=== PATIENT | male | born 1955 | race Caucasian/White ===

== ENCOUNTER 2024-05-20 16:36 | Inpatient (IN) | payer MEDICARE ==
[~2024-05-20] VITALS: Ht 182.9 cm; Wt 75.3 kg
[2024-05-21] VITALS (13 sets, daily range): BP systolic 110–148; BP diastolic 60–104; TEMP 97.7–100; O2SAT 95–99
[2024-05-21] MEDS ORDERED: MAG HYDROX/AL HYDROX/SIMETH 30 ML UDC PO PRN (02:30)
[2024-05-21] MEDS ORDERED: MORPHINE SULFATE INJ 4 MG/ML DISP.SYRIN IV PRN (02:30)
[2024-05-21] MEDS ORDERED: ONDANSETRON HCL/PF 4 MG/2 ML VIAL IVP PRN (02:30)
[2024-05-21] MEDS ORDERED: MAGNESIUM HYDROXIDE 30 ML UDC PO PRN (02:30)
[2024-05-21] MEDS ORDERED: HEPARIN INFUSION/D5W 500 ML IV PRN ×2 (02:30→03:00)
[2024-05-21 03:09] LABS: CALCIUM, SERUM 8.8 mg/dL (8.5-10.1); MAGNESIUM 2.2 mg/dL (1.8-2.4); PHOSPHORUS 6.1 mg/dL (2.5-4.9); POTASSIUM 4.3 mmol/L (3.5-5.1)
[2024-05-21 03:19] LABS: THYROID STIMULATING HORMONE 3.82 uIU/mL (0.358-3.74)
[2024-05-21 03:38] LABS: CREATININE 8.3 mg/dL (0.6-1.3)
[2024-05-21] MEDS: ACETAMINOPHEN 325 MG TABLET PO PRN (04:14)
[2024-05-21] MEDS: AMIODARONE 150 MG in IV D5W 100 ML IV ONE (04:23)
[2024-05-21] MEDS: AMIODARONE 150 MG/3 ML VIAL IV ONE ×2 (04:29→04:47)
[2024-05-21] MEDS: AMIODARONE 450 MG in IV D5W 241 ML IV PRN (04:34)
[2024-05-21] MEDS: HEPARIN INFUSION/D5W 500 ML IV ONE (05:00)
[2024-05-21] MEDS: HEPARIN INFUSION/D5W 500 ML IV PRN (05:03)
[2024-05-21] MEDS: METOPROLOL TARTRATE 50 MG TABLET PO SCH (07:00)
[2024-05-21 07:30] LABS: BASOPHILS % (AUTO) 0.3 % (0.0-2.0); EOSINOPHILS # (AUTO) 0.1 K/uL (0.0-0.7); EOSINOPHILS % (AUTO) 0.6 % (0.0-6.0); HEMATOCRIT 28 % (39-51); HEMOGLOBIN 9.7 g/dL (13.5-17.5); LYMPHOCYTES # (AUTO) 0.5 K/uL (0.8-4.8); LYMPHOCYTES % (AUTO) 6.6 % (20.0-44.0); MEAN CORPUSCULAR HEMOGLOBIN 33 PG (26.0-33.0); MEAN CORPUSCULAR HGB CONC 34 g/dl (31.0-36.0); MEAN CORPUSCULAR VOLUME 96 fL (80-96); MONOCYTES % (AUTO) 11.5 % (2.0-12.0); NEUTROPHILS # (AUTO) 6.8 K/uL (1.8-8.9); PLATELET COUNT (AUTO) 125 K/uL (150-450); RED BLOOD CELL COUNT(AUTO) 2.95 MIL/uL (4.5-6.0); RED CELL DISTRIBUTION WIDTH 15.5 % (11.5-15.0); WHITE BLOOD COUNT (AUTO) 8.4 K/uL (4.3-11.0)
[2024-05-21 07:35] LABS: ALBUMIN 2.7 g/dL (3.4-5.0); BILIRUBIN,TOTAL 0.6 mg/dL (0.2-1.0); CALCIUM, SERUM 8.5 mg/dL (8.5-10.1); MAGNESIUM 2.3 mg/dL (1.8-2.4); PHOSPHORUS 5.9 mg/dL (2.5-4.9); POTASSIUM 4.5 mmol/L (3.5-5.1); TOTAL PROTEIN, SERUM 6.4 g/dL (6.4-8.2)
[2024-05-21 08:42] LABS: CREATININE 8.8 mg/dL (0.6-1.3)
[2024-05-21] MEDS ORDERED: CARV25TA2 PO (08:56)
[2024-05-21] MEDS ORDERED: FINA5TAB11 PO (08:56)
[2024-05-21] MEDS ORDERED: HYDR100T27 PO (08:56)
[2024-05-21] MEDS ORDERED: LEVO25TA9 PO (08:56)
[2024-05-21] MEDS ORDERED: DOXA4TAB19 PO (08:56)
[2024-05-21] MEDS ORDERED: SACU1TAB7 PO (08:56)
[2024-05-21] MEDS ORDERED: PANTOPRAZOLE 40 MG VIAL IV SCH (09:00)
[2024-05-21] MEDS: ATORVASTATIN 40 MG TABLET PO SCH (09:11)
[2024-05-21] MEDS: ASPIRIN 81 MG TAB.CHEW PO SCH (09:11)
[2024-05-21 20:41] LABS: INR 1.11 (0.91-1.10); PARTIAL THROMBOPLASTIN TIME 44.1 SEC (24.3-34.3); PROTHROMBIN TIME 11.7 SECS (9.2-11.1)
[2024-05-22] VITALS (8 sets, daily range): BP systolic 125–144; BP diastolic 80–89; TEMP 98.1–98.6; O2SAT 94–99
[2024-05-22 07:52] LABS: BASOPHILS % (AUTO) 0.5 % (0.0-2.0); EOSINOPHILS # (AUTO) 0.3 K/uL (0.0-0.7); EOSINOPHILS % (AUTO) 4.2 % (0.0-6.0); HEMATOCRIT 24 % (39-51); HEMOGLOBIN 8.6 g/dL (13.5-17.5); LYMPHOCYTES # (AUTO) 0.7 K/uL (0.8-4.8); LYMPHOCYTES % (AUTO) 10.7 % (20.0-44.0); MEAN CORPUSCULAR HEMOGLOBIN 33 PG (26.0-33.0); MEAN CORPUSCULAR HGB CONC 35 g/dl (31.0-36.0); MEAN CORPUSCULAR VOLUME 95 fL (80-96); MONOCYTES # (AUTO) 0.8 K/uL (0.1-1.30); MONOCYTES % (AUTO) 12.6 % (2.0-12.0); NEUTROPHILS # (AUTO) 4.7 K/uL (1.8-8.9); PLATELET COUNT (AUTO) 121 K/uL (150-450); RED BLOOD CELL COUNT(AUTO) 2.57 MIL/uL (4.5-6.0); RED CELL DISTRIBUTION WIDTH 15.1 % (11.5-15.0); WHITE BLOOD COUNT (AUTO) 6.5 K/uL (4.3-11.0)
[2024-05-22 08:09] LABS: CALCIUM, SERUM 8.1 mg/dL (8.5-10.1)
[2024-05-22 08:12] LABS: CREATININE 10.3 mg/dL (0.6-1.3)
[2024-05-22] MEDS ORDERED: NITROGLYCERIN IN 5 % DEXTROSE 250 ML IV ONE (12:47)
[2024-05-22] MEDS ORDERED: IODIXANOL 150 ML IV ONE (12:47)
[2024-05-22] MEDS ORDERED: LIDOCAINE HCL/MPF 1% 30 ML VIAL IJ ONE (12:47)
[2024-05-22] MEDS ORDERED: IV SET PRIMARY PUMP SET 1 EA INFUS.SET MC ONE (12:48)
[2024-05-22] MEDS ORDERED: IV NS 0.9% 1,000 ML ONE (12:48)
[2024-05-22] MEDS ORDERED: MIDAZOLAM HCL 2 MG/2ML VIAL ONE (13:53)
[2024-05-22] MEDS ORDERED: FENTANYL PF 100MCG/2ML AMPUL ONE (13:53)
[2024-05-22] MEDS ORDERED: hydrALAZINE HCL IV 20 MG VIAL ONE (13:58)
[2024-05-23] VITALS: BP 143/92; TEMP 98.1; O2SAT 93
[2024-05-23 04:00] VITALS: BP 143/92; TEMP 99; O2SAT 96
[2024-05-23 07:33] LABS: BASOPHILS % (AUTO) 0.5 % (0.0-2.0); EOSINOPHILS # (AUTO) 0.3 K/uL (0.0-0.7); EOSINOPHILS % (AUTO) 6.1 % (0.0-6.0); HEMATOCRIT 26 % (39-51); HEMOGLOBIN 9.2 g/dL (13.5-17.5); LYMPHOCYTES # (AUTO) 0.5 K/uL (0.8-4.8); LYMPHOCYTES % (AUTO) 9.2 % (20.0-44.0); MEAN CORPUSCULAR HEMOGLOBIN 33 PG (26.0-33.0); MEAN CORPUSCULAR HGB CONC 35 g/dl (31.0-36.0); MEAN CORPUSCULAR VOLUME 95 fL (80-96); MONOCYTES # (AUTO) 0.7 K/uL (0.1-1.30); MONOCYTES % (AUTO) 12.2 % (2.0-12.0); NEUTROPHILS # (AUTO) 4.1 K/uL (1.8-8.9); PLATELET COUNT (AUTO) 137 K/uL (150-450); RED BLOOD CELL COUNT(AUTO) 2.76 MIL/uL (4.5-6.0); RED CELL DISTRIBUTION WIDTH 15.1 % (11.5-15.0); WHITE BLOOD COUNT (AUTO) 5.7 K/uL (4.3-11.0)
[2024-05-23 08:00] VITALS: BP 154/88; TEMP 98.2; O2SAT 95
[2024-05-23 08:12] LABS: CREATININE 7.2 mg/dL (0.6-1.3); POTASSIUM 5.4 mmol/L (3.5-5.1)
[2024-05-23] MEDS: APIXABAN 2.5 MG TABLET PO SCH (09:30)
[2024-05-23] MEDS ORDERED: APIX2.5T PO (10:38)
[2024-05-23] MEDS ORDERED: METO50TA16 PO (10:38)
[2024-05-23 12:00] VITALS: BP 124/65; TEMP 98.9; O2SAT 94
== END 2024-05-23 12:35 | disposition home or self-care (01) | DRG 640 ==
LOC: TELE 05-21 00:56 → ICU 05-21 02:53 → TELE-TD 05-21 14:21 → ICU 05-22 14:50 → TELE1 05-22 15:49 → ICUOV 05-22 16:32 → TELE1 05-23 09:46
PROVIDERS: ADMIT Nurse Practitioner Acute Care; ATTEND Nurse Practitioner Acute Care
PROC: 4A023N7 Measurement of Cardiac Sampling and Pressure, Left Heart, Percutaneous Approach (ICD-10-PCS; principal; 2024-05-22)
PROC: B211YZZ Fluoroscopy of Multiple Coronary Arteries using Other Contrast (ICD-10-PCS; 2024-05-22)
PROC: 5A1D70Z Performance of Urinary Filtration, Intermittent, Less than 6 Hours Per Day (ICD-10-PCS; 2024-05-22)
DX: E87.79 Other fluid overload (principal); I21.A1 Myocardial infarction type 2; N18.6 End stage renal disease; I12.0 Hypertensive chronic kidney disease with stage 5 chronic kidney disease or end stage renal disease; Z99.2 Dependence on renal dialysis; D64.9 Anemia, unspecified; M89.8X9 Other specified disorders of bone, unspecified site; E83.9 Disorder of mineral metabolism, unspecified; I48.91 Unspecified atrial fibrillation; R09.89 Other specified symptoms and signs involving the circulatory and respiratory systems
CPT/HCPCS: 36415; 71045-TC; 80048-TC; 80053-TC; 80061-TC; 83735-TC; 84100-TC; 84443-TC; 84484-TC; 85025-TC; 85610-TC; 85730-TC; 87081-TC; 90935-TC; 93307-TC; A4223; A6403; G0378; J0282; J0360; J1644; J2250; J3010; J3490; J7030; J7060; Q9967

== ENCOUNTER 2024-07-19 20:46 | Inpatient (IN) | payer MEDICARE, OTHER ==
[~2024-07-19] VITALS: Ht 170.2 cm; Wt 66.7 kg
[~2024-07-19 20:46] MED LIST: APIX2.5T PO; DOXA4TAB19 PO; FINA5TAB11 PO; HYDR100T27 PO; LEVO25TA9 PO; METO50TA16 PO; SACU1TAB7 PO
[2024-07-19] MEDS ORDERED: MECLIZINE HCL 25 MG TABLET ONE (21:21)
[2024-07-19] MEDS: MECLIZINE HCL 25 MG TABLET PO ONE (21:24)
[2024-07-19 21:26] LABS: BASOPHILS # (AUTO) 0.1 K/uL (0.0-0.2); BASOPHILS % (AUTO) 0.7 % (0.0-2.0); EOSINOPHILS # (AUTO) 0.1 K/uL (0.0-0.7); EOSINOPHILS % (AUTO) 1.8 % (0.0-6.0); HEMATOCRIT 27 % (39-51); HEMOGLOBIN 9.2 g/dL (13.5-17.5); LYMPHOCYTES # (AUTO) 0.7 K/uL (0.8-4.8); MEAN CORPUSCULAR HEMOGLOBIN 31 PG (26.0-33.0); MEAN CORPUSCULAR HGB CONC 34 g/dl (31.0-36.0); MEAN CORPUSCULAR VOLUME 91 fL (80-96); MONOCYTES # (AUTO) 0.8 K/uL (0.1-1.30); MONOCYTES % (AUTO) 11.1 % (2.0-12.0); NEUTROPHILS # (AUTO) 5.8 K/uL (1.8-8.9); NEUTROPHILS % (AUTO) 77.4 % (43.0-81.0); PLATELET COUNT (AUTO) 206 K/uL (150-450); RED BLOOD CELL COUNT(AUTO) 2.96 MIL/uL (4.5-6.0); RED CELL DISTRIBUTION WIDTH 17.3 % (11.5-15.0); WHITE BLOOD COUNT (AUTO) 7.4 K/uL (4.3-11.0)
[2024-07-19 21:37] LABS: CALCIUM, SERUM 9.1 mg/dL (8.5-10.1); CARBON DIOXIDE 32 mmol/L (21-32); CHLORIDE 98 mmol/L (98-107); GLUCOSE 176 mg/dL (74-106); POTASSIUM 4.3 mmol/L (3.5-5.1); SODIUM SERUM 137 mmol/L (136-145); UREA NITROGEN, BLOOD 30 mg/dL (7-18)
[2024-07-19] MEDS ORDERED: ONDANSETRON HCL/PF 4 MG/2 ML VIAL ONE (21:40)
[2024-07-19] MEDS: ONDANSETRON HCL/PF - ER 4 MG/2 ML VIAL IV ONE (21:45)
[2024-07-19 21:49] LABS: ALANINE AMINOTRANSFERASE 7 U/L (12-78); ALBUMIN 3.1 g/dL (3.4-5.0); ALKALINE PHOSPHATASE 117 U/L (46-116); ASPARTATE AMINOTRANSFERASE 20 U/L (15-37); BILIRUBIN,DIRECT 0.1 mg/dL (0.0-0.2); BILIRUBIN,TOTAL 0.4 mg/dL (0.2-1.0); NT-PRO BNP > 25000 pg/mL (0-125); TOTAL PROTEIN, SERUM 6.8 g/dL (6.4-8.2)
[2024-07-19] MEDS: METOCLOPRAMIDE HCL 10 MG/2 ML VIAL IV ONE (22:00)
[2024-07-19] MEDS ORDERED: METOCLOPRAMIDE HCL 10 MG/2 ML VIAL ONE (22:04)
[2024-07-19] MEDS ORDERED: diphenhydrAMINE HCL 50 MG/ML VIAL ONE (22:04)
[2024-07-19] MEDS: diphenhydrAMINE HCL 50 MG/ML VIAL IV ONE (22:14)
[2024-07-19 23:45] LABS: INR 1.18 (0.91-1.10); PARTIAL THROMBOPLASTIN TIME 29.9 SEC (24.3-34.3); PROTHROMBIN TIME 12.4 SECS (9.2-11.1)
[2024-07-20] MEDS ORDERED: MAG HYDROX/AL HYDROX/SIMETH 30 ML UDC PO PRN
[2024-07-20] MEDS ORDERED: ONDANSETRON HCL/PF 4 MG/2 ML VIAL IVP PRN
[2024-07-20] MEDS: ASPIRIN EC 325 MG TABLET.DR PO ONE
[2024-07-20] MEDS ORDERED: MAGNESIUM HYDROXIDE 30 ML UDC PO PRN
[2024-07-20] MEDS ORDERED: ASPIRIN 325 MG TABLET ONE (01:15)
[2024-07-20 04:00] VITALS: BP 129/99; TEMP 97.7; O2SAT 93
[2024-07-20] MEDS: LEVOTHYROXINE SODIUM 75 MCG TABLET PO SCH (06:57)
[2024-07-20] MEDS: PANTOPRAZOLE 40 MG VIAL IV SCH (08:20)
[2024-07-20] MEDS: hydrALAZINE HCL 50 MG TABLET PO SCH (08:27)
[2024-07-20 09:05] VITALS: BP 160/102; TEMP 97.9; O2SAT 97
[2024-07-20] MEDS: SACUBITRIL/VALSARTAN 49/51MG TABLET PO SCH (09:39)
[2024-07-20 10:06] LABS: BASOPHILS % (AUTO) 0.4 % (0.0-2.0); EOSINOPHILS % (AUTO) 0.1 % (0.0-6.0); HEMATOCRIT 27 % (39-51); LYMPHOCYTES # (AUTO) 0.5 K/uL (0.8-4.8); LYMPHOCYTES % (AUTO) 7.4 % (20.0-44.0); MEAN CORPUSCULAR HEMOGLOBIN 31 PG (26.0-33.0); MEAN CORPUSCULAR HGB CONC 33 g/dl (31.0-36.0); MEAN CORPUSCULAR VOLUME 93 fL (80-96); MONOCYTES # (AUTO) 0.4 K/uL (0.1-1.30); MONOCYTES % (AUTO) 5.8 % (2.0-12.0); NEUTROPHILS # (AUTO) 5.8 K/uL (1.8-8.9); NEUTROPHILS % (AUTO) 86.3 % (43.0-81.0); PLATELET COUNT (AUTO) 155 K/uL (150-450); RED BLOOD CELL COUNT(AUTO) 2.96 MIL/uL (4.5-6.0); RED CELL DISTRIBUTION WIDTH 17.2 % (11.5-15.0); WHITE BLOOD COUNT (AUTO) 6.8 K/uL (4.3-11.0)
[2024-07-20 10:27] LABS: CALCIUM, SERUM 9.2 mg/dL (8.5-10.1); CREATININE 6.1 mg/dL (0.6-1.3); MAGNESIUM 2.1 mg/dL (1.8-2.4); PHOSPHORUS 5.3 mg/dL (2.5-4.9); POTASSIUM 4.4 mmol/L (3.5-5.1)
[2024-07-20] MEDS: MECLIZINE HCL 25 MG TABLET PO PRN (10:51)
[2024-07-20] MEDS ORDERED: LORAZEPAM INJ 2 MG/ML VIAL IV PRN (11:00)
[2024-07-20] MEDS ORDERED: LORAZEPAM 0.5 MG TABLET PO PRN (11:00)
[2024-07-20 12:00] VITALS: BP 152/88; TEMP 97.7; O2SAT 97
[2024-07-20 16:00] VITALS: BP 141/90; TEMP 98.3; O2SAT 96
[2024-07-20 20:00] VITALS: BP 168/112; TEMP 98.8; O2SAT 95
[2024-07-21] VITALS: BP 148/96; TEMP 98.1; O2SAT 98
[2024-07-21 05:30] VITALS: BP 160/110; TEMP 99.3; O2SAT 95
[2024-07-21 07:34] LABS: CALCIUM, SERUM 9.2 mg/dL (8.5-10.1); POTASSIUM 4.7 mmol/L (3.5-5.1)
[2024-07-21] MEDS: PANTOPRAZOLE 40 MG TABLET.DR PO SCH (08:17)
[2024-07-21 08:24] LABS: CREATININE 8.1 mg/dL (0.6-1.3)
[2024-07-21 20:00] VITALS: BP 144/92; TEMP 98; O2SAT 99
[2024-07-22 06:56] LABS: CALCIUM, SERUM 8.6 mg/dL (8.5-10.1); POTASSIUM 5.1 mmol/L (3.5-5.1)
[2024-07-22 07:19] LABS: CREATININE 9.7 mg/dL (0.6-1.3)
[2024-07-22 08:00] VITALS: BP 152/98; TEMP 98.9; O2SAT 99
[2024-07-22] MEDS ORDERED: CEFD300C3 PO (10:47)
[2024-07-22 16:00] VITALS: BP 163/104; TEMP 99.1; O2SAT 95
[2024-07-22 20:00] VITALS: BP 164/109; TEMP 98.4; O2SAT 93
[2024-07-22] MEDS: CEFEPIME 1 GM in IV D5W 50 ML IV SCH (22:12)
[2024-07-23 02:00] VITALS: BP 154/93
[2024-07-23 08:00] VITALS: BP 156/115; TEMP 99.3; O2SAT 98
[2024-07-23] MEDS ORDERED: IV NS 0.9% 250 ML IV ONE (10:13)
[2024-07-23] MEDS ORDERED: CT SWABBABLE VALVE TRANS SET 1 EA INFUS.SET MC ONE (10:13)
[2024-07-23] MEDS ORDERED: IOHEXOL-350 100 ML VIAL IV ONE (10:13)
[2024-07-23 15:07] LABS: INR 1.19 (0.91-1.10); PROTHROMBIN TIME 12.5 SECS (9.2-11.1)
[2024-07-23 15:17] VITALS: BP 148/114; TEMP 98.6; O2SAT 97
[2024-07-23] MEDS: HEPARIN SODIUM, PORCINE 1,000 UNIT/ML VIAL IV ONE (16:19)
[2024-07-23] MEDS: HEPARIN INFUSION/D5W 500 ML IV PRN (16:22)
[2024-07-23 20:00] VITALS: BP 146/99; TEMP 98.2; O2SAT 96
[2024-07-24 00:06] LABS: INR 1.2 (0.91-1.10); PROTHROMBIN TIME 12.6 SECS (9.2-11.1)
[2024-07-24] MEDS: HEPARIN SODIUM, PORCINE 1000 UNIT/1 ML VIAL IV ONE (01:15)
[2024-07-24] MEDS ORDERED: HEPARIN SODIUM,PORCINE/PF 50 UNIT/5 ML DISP.SYRIN IV ONE (01:15)
[2024-07-24] MEDS: HEPARIN SODIUM, PORCINE 5000 UNITS/1 ML VIAL IV ONE (01:26)
[2024-07-24 07:13] LABS: BASOPHILS % (AUTO) 0.8 % (0.0-2.0); EOSINOPHILS # (AUTO) 0.2 K/uL (0.0-0.7); EOSINOPHILS % (AUTO) 2.5 % (0.0-6.0); HEMATOCRIT 28 % (39-51); HEMOGLOBIN 9.4 g/dL (13.5-17.5); LYMPHOCYTES # (AUTO) 0.8 K/uL (0.8-4.8); MEAN CORPUSCULAR HEMOGLOBIN 31 PG (26.0-33.0); MEAN CORPUSCULAR HGB CONC 34 g/dl (31.0-36.0); MEAN CORPUSCULAR VOLUME 92 fL (80-96); MONOCYTES # (AUTO) 0.6 K/uL (0.1-1.30); MONOCYTES % (AUTO) 9.6 % (2.0-12.0); NEUTROPHILS # (AUTO) 4.7 K/uL (1.8-8.9); NEUTROPHILS % (AUTO) 74.1 % (43.0-81.0); PLATELET COUNT (AUTO) 156 K/uL (150-450); RED BLOOD CELL COUNT(AUTO) 3.03 MIL/uL (4.5-6.0); RED CELL DISTRIBUTION WIDTH 17.8 % (11.5-15.0); WHITE BLOOD COUNT (AUTO) 6.3 K/uL (4.3-11.0)
[2024-07-24 07:24] LABS: CALCIUM, SERUM 8.6 mg/dL (8.5-10.1); MAGNESIUM 2.1 mg/dL (1.8-2.4); PHOSPHORUS 6.9 mg/dL (2.5-4.9); POTASSIUM 4.6 mmol/L (3.5-5.1)
[2024-07-24 08:00] VITALS: BP 177/107; TEMP 98.2; O2SAT 98
[2024-07-24 10:41] LABS: INR 1.14 (0.91-1.10); PARTIAL THROMBOPLASTIN TIME 60.4 SEC (24.3-34.3); PROTHROMBIN TIME 11.6 SECS (9.2-11.1)
[2024-07-24 13:26] LABS: THYROID STIMULATING HORMONE 3.66 uIU/mL (0.358-3.74)
[2024-07-24] MEDS ORDERED: IOHEXOL-300 100 ML VIAL IV ONE (14:16)
[2024-07-24] MEDS ORDERED: IV NS 0.9% 250 ML IV ONE (14:16)
[2024-07-24 14:28] LABS: D-DIMER 23.06 mg/L(FEU (0.17-0.50)
[2024-07-24 18:00] VITALS: BP 146/106; TEMP 98.8; O2SAT 96
[2024-07-24 20:00] VITALS: BP 150/90; TEMP 98.2; O2SAT 97; O2SAT 98
[2024-07-25] MEDS: ACETAMINOPHEN 325 MG TABLET PO PRN (01:57)
[2024-07-25 06:10] LABS: CARCINOEMBRYONIC ANTIGEN (CEA) 3.5 ng/mL (0.0-4.7); FOLIC ACID 4.8 ng/mL (>3.0)
[2024-07-25 06:57] LABS: BASOPHILS # (AUTO) 0.1 K/uL (0.0-0.2); BASOPHILS % (AUTO) 0.8 % (0.0-2.0); EOSINOPHILS # (AUTO) 0.2 K/uL (0.0-0.7); EOSINOPHILS % (AUTO) 2.9 % (0.0-6.0); HEMATOCRIT 29 % (39-51); INR 1.17 (0.91-1.10); LYMPHOCYTES # (AUTO) 0.7 K/uL (0.8-4.8); LYMPHOCYTES % (AUTO) 11.8 % (20.0-44.0); MEAN CORPUSCULAR HEMOGLOBIN 32 PG (26.0-33.0); MEAN CORPUSCULAR HGB CONC 35 g/dl (31.0-36.0); MEAN CORPUSCULAR VOLUME 92 fL (80-96); MONOCYTES # (AUTO) 0.7 K/uL (0.1-1.30); MONOCYTES % (AUTO) 11.8 % (2.0-12.0); NEUTROPHILS # (AUTO) 4.5 K/uL (1.8-8.9); NEUTROPHILS % (AUTO) 72.7 % (43.0-81.0); PLATELET COUNT (AUTO) 104 K/uL (150-450); PROTHROMBIN TIME 12.3 SECS (9.2-11.1); RED BLOOD CELL COUNT(AUTO) 3.11 MIL/uL (4.5-6.0); RED CELL DISTRIBUTION WIDTH 17.7 % (11.5-15.0); WHITE BLOOD COUNT (AUTO) 6.2 K/uL (4.3-11.0)
[2024-07-25 07:00] VITALS: BP 152/124; TEMP 97.5; O2SAT 98
[2024-07-25 07:53] LABS: CALCIUM, SERUM 8.8 mg/dL (8.5-10.1); PHOSPHORUS 6.4 mg/dL (2.5-4.9); POTASSIUM 4.1 mmol/L (3.5-5.1)
[2024-07-25 08:00] VITALS: BP 154/124; TEMP 97.5; O2SAT 98
[2024-07-25 08:06] LABS: CREATININE 8.2 mg/dL (0.6-1.3)
[2024-07-25 08:07] LABS: IMMUNOGLOBULIN A, SERUM 147 mg/dL (61-437); IMMUNOGLOBULIN G, SERUM 891 mg/dL (603-1613); IMMUNOGLOBULIN M, SERUM 29 mg/dL (20-172)
[2024-07-25 08:21] LABS: PARTIAL THROMBOPLASTIN TIME 76.9 SEC (24.3-34.3)
[2024-07-25 09:20] VITALS: BP 147/104
[2024-07-25 10:10] LABS: FREE KAPPA LT CHAINS SERUM 81.1 mg/L (3.3-19.4); FREE LAMBDA LT CHAIN SERUM 81.6 mg/L (5.7-26.3); KAPPA/LAMBDA RATIO SERUM 0.99 (0.26-1.65)
[2024-07-25 16:00] VITALS: BP 154/105; TEMP 97.9; O2SAT 97
[2024-07-25 19:25] LABS: RHEUMATOID FACTOR SCREEN NEGATIVE (NEGATIVE)
[2024-07-25 20:00] VITALS: BP 111/78; TEMP 98.1; O2SAT 99
[2024-07-25] MEDS: APIXABAN 5 MG TABLET PO SCH (20:52)
[2024-07-26 04:00] VITALS: BP 132/67; TEMP 98.1; O2SAT 100
[2024-07-26 07:08] LABS: HEPATITIS B CORE AB, TOTAL Negative (Negative); HEPATITIS B SURFACE AB (QUAL) Reactive (.)
[2024-07-26 07:25] LABS: BASOPHILS % (AUTO) 0.8 % (0.0-2.0); EOSINOPHILS # (AUTO) 0.2 K/uL (0.0-0.7); EOSINOPHILS % (AUTO) 3.4 % (0.0-6.0); HEMATOCRIT 28 % (39-51); HEMOGLOBIN 9.7 g/dL (13.5-17.5); LYMPHOCYTES # (AUTO) 0.7 K/uL (0.8-4.8); LYMPHOCYTES % (AUTO) 12.2 % (20.0-44.0); MEAN CORPUSCULAR HEMOGLOBIN 32 PG (26.0-33.0); MEAN CORPUSCULAR HGB CONC 35 g/dl (31.0-36.0); MEAN CORPUSCULAR VOLUME 93 fL (80-96); MONOCYTES # (AUTO) 0.7 K/uL (0.1-1.30); MONOCYTES % (AUTO) 12.3 % (2.0-12.0); NEUTROPHILS # (AUTO) 4.2 K/uL (1.8-8.9); NEUTROPHILS % (AUTO) 71.3 % (43.0-81.0); PLATELET COUNT (AUTO) 115 K/uL (150-450); RED BLOOD CELL COUNT(AUTO) 3.03 MIL/uL (4.5-6.0); RED CELL DISTRIBUTION WIDTH 18.4 % (11.5-15.0); WHITE BLOOD COUNT (AUTO) 5.9 K/uL (4.3-11.0)
[2024-07-26 07:48] LABS: CALCIUM, SERUM 8.9 mg/dL (8.5-10.1); MAGNESIUM 2.1 mg/dL (1.8-2.4); POTASSIUM 5.2 mmol/L (3.5-5.1)
[2024-07-26] MEDS ORDERED: MECL-159 PO (09:41)
[2024-07-26] MEDS ORDERED: APIX5TAB PO (09:41)
[2024-07-26 14:37] LABS: ALBUMIN 2.8 g/dL (3.4-5.0); BILIRUBIN,DIRECT 0.1 mg/dL (0.0-0.2); BILIRUBIN,TOTAL 0.4 mg/dL (0.2-1.0); TOTAL PROTEIN, SERUM 6.2 g/dL (6.4-8.2)
[2024-07-26 15:07] LABS: BASOPHILS % (AUTO) 0.9 % (0.0-2.0); EOSINOPHILS # (AUTO) 0.2 K/uL (0.0-0.7); EOSINOPHILS % (AUTO) 3.3 % (0.0-6.0); HEMATOCRIT 28 % (39-51); HEMOGLOBIN 9.7 g/dL (13.5-17.5); LYMPHOCYTES # (AUTO) 0.6 K/uL (0.8-4.8); LYMPHOCYTES % (AUTO) 10.7 % (20.0-44.0); MEAN CORPUSCULAR HEMOGLOBIN 32 PG (26.0-33.0); MEAN CORPUSCULAR HGB CONC 35 g/dl (31.0-36.0); MEAN CORPUSCULAR VOLUME 92 fL (80-96); MONOCYTES # (AUTO) 0.5 K/uL (0.1-1.30); MONOCYTES % (AUTO) 9.2 % (2.0-12.0); NEUTROPHILS # (AUTO) 4.2 K/uL (1.8-8.9); NEUTROPHILS % (AUTO) 75.9 % (43.0-81.0); PLATELET COUNT (AUTO) 112 K/uL (150-450); RED BLOOD CELL COUNT(AUTO) 3.06 MIL/uL (4.5-6.0); RED CELL DISTRIBUTION WIDTH 17.8 % (11.5-15.0); WHITE BLOOD COUNT (AUTO) 5.5 K/uL (4.3-11.0)
[2024-07-26 17:11] LABS: BETA-2 MICROGLOBULIN, SERUM 18.8 mg/L (0.6-2.4)
[2024-07-26] MEDS: APIXABAN 5 MG TABLET PO SCH (19:53)
[2024-07-26 20:00] VITALS: BP 131/97; TEMP 98.8; O2SAT 100
[2024-07-26 21:06] LABS: ANTITHROMBIN III ACTIVITY 80 % (75-135)
[2024-07-27 06:58] LABS: BASOPHILS # (AUTO) 0.1 K/uL (0.0-0.2); EOSINOPHILS # (AUTO) 0.3 K/uL (0.0-0.7); EOSINOPHILS % (AUTO) 5.3 % (0.0-6.0); HEMATOCRIT 31 % (39-51); HEMOGLOBIN 10.4 g/dL (13.5-17.5); LYMPHOCYTES # (AUTO) 0.8 K/uL (0.8-4.8); LYMPHOCYTES % (AUTO) 13.8 % (20.0-44.0); MEAN CORPUSCULAR HEMOGLOBIN 31 PG (26.0-33.0); MEAN CORPUSCULAR HGB CONC 33 g/dl (31.0-36.0); MEAN CORPUSCULAR VOLUME 93 fL (80-96); MONOCYTES # (AUTO) 0.8 K/uL (0.1-1.30); MONOCYTES % (AUTO) 14.6 % (2.0-12.0); NEUTROPHILS # (AUTO) 3.8 K/uL (1.8-8.9); NEUTROPHILS % (AUTO) 65.3 % (43.0-81.0); PLATELET COUNT (AUTO) 124 K/uL (150-450); RED BLOOD CELL COUNT(AUTO) 3.37 MIL/uL (4.5-6.0); RED CELL DISTRIBUTION WIDTH 17.8 % (11.5-15.0); WHITE BLOOD COUNT (AUTO) 5.8 K/uL (4.3-11.0)
[2024-07-27 07:45] LABS: CALCIUM, SERUM 9.5 mg/dL (8.5-10.1); MAGNESIUM 2.2 mg/dL (1.8-2.4); PHOSPHORUS 7.5 mg/dL (2.5-4.9); POTASSIUM 4.7 mmol/L (3.5-5.1)
[2024-07-27 07:48] LABS: CREATININE 7.7 mg/dL (0.6-1.3)
[2024-07-27 08:11] LABS: CARBOHYDRATE AG 19-9 37 U/mL (0-35)
[2024-07-27 12:11] LABS: *ANA ANTI-CENTROMERE B AB <0.2 AI (0.0-0.9); *ANA ANTI-DNA(DS) AB, QN 2 IU/mL (0-9); *ANA ANTI-JO-1 <0.2 AI (0.0-0.9); *ANA ANTICHROMATIN ANTIBODY 0.2 AI (0.0-0.9); *ANA RNP ANTIBODIES <0.2 AI (0.0-0.9); *ANA SJOGREN'S ANTI-SS-A <0.2 AI (0.0-0.9); *ANA SJOGREN'S ANTI-SS-B <0.2 AI (0.0-0.9); *ANAANTI-SCLERODERMA-70 AB <0.2 AI (0.0-0.9); *ANASMITH AB <0.2 AI (0.0-0.9)
[2024-07-27 13:07] LABS: *ANTITHROMBIN III AG 88 % (72-124); *DILUTE PROTHROMBIN TIME (dPT) 52.5 sec (0.0-47.6); *PTT-LA MIX 42.5 sec (0.0-40.5); *THROMBIN TIME 64.9 sec (0.0-23.0); *dPT CONFIRM RATIO 1.08 Ratio (0.00-1.34); *dRVVT 48.4 sec (0.0-47.0); ANTITHROMBIN III ACTIVITY 83 % (75-135); PROTEIN C ACTIVITY 83 % (73-180)
[2024-07-27] MEDS: FOLIC ACID 1 MG TABLET PO SCH (13:48)
[2024-07-27] MEDS: CYANOCOBALAMIN 1,000 MCG/ML VIAL SQ SCH (15:22)
[2024-07-27 20:00] VITALS: BP 154/92; TEMP 98.6; O2SAT 99
[2024-07-27 22:00] VITALS: BP_SYST 141; BP_SYST 154; BP_DIAS 87; BP_DIAS 92; TEMP 98.6; O2SAT 99
[2024-07-28 07:19] LABS: BASOPHILS % (AUTO) 0.8 % (0.0-2.0); EOSINOPHILS # (AUTO) 0.2 K/uL (0.0-0.7); EOSINOPHILS % (AUTO) 4.5 % (0.0-6.0); HEMATOCRIT 29 % (39-51); HEMOGLOBIN 9.9 g/dL (13.5-17.5); LYMPHOCYTES # (AUTO) 0.7 K/uL (0.8-4.8); MEAN CORPUSCULAR HEMOGLOBIN 32 PG (26.0-33.0); MEAN CORPUSCULAR HGB CONC 34 g/dl (31.0-36.0); MEAN CORPUSCULAR VOLUME 92 fL (80-96); MONOCYTES # (AUTO) 0.7 K/uL (0.1-1.30); MONOCYTES % (AUTO) 13.2 % (2.0-12.0); NEUTROPHILS # (AUTO) 3.6 K/uL (1.8-8.9); NEUTROPHILS % (AUTO) 67.5 % (43.0-81.0); PLATELET COUNT (AUTO) 125 K/uL (150-450); RED BLOOD CELL COUNT(AUTO) 3.13 MIL/uL (4.5-6.0); RED CELL DISTRIBUTION WIDTH 17.8 % (11.5-15.0); WHITE BLOOD COUNT (AUTO) 5.4 K/uL (4.3-11.0)
[2024-07-28 07:45] LABS: CALCIUM, SERUM 9.3 mg/dL (8.5-10.1); MAGNESIUM 2.4 mg/dL (1.8-2.4); POTASSIUM 4.8 mmol/L (3.5-5.1)
[2024-07-28 08:14] LABS: PHOSPHORUS 8.2 mg/dL (2.5-4.9)
[2024-07-28] MEDS ORDERED: CT SWABBABLE VALVE TRANS SET 1 EA INFUS.SET MC ONE (09:46)
[2024-07-28] MEDS ORDERED: IOHEXOL-350 100 ML VIAL IV ONE (09:46)
[2024-07-29 08:00] VITALS: BP 159/99; TEMP 97.9; O2SAT 96
[2024-07-29 11:29] LABS: BASOPHILS % (AUTO) 0.7 % (0.0-2.0); EOSINOPHILS # (AUTO) 0.2 K/uL (0.0-0.7); EOSINOPHILS % (AUTO) 4.1 % (0.0-6.0); HEMATOCRIT 30 % (39-51); HEMOGLOBIN 10.3 g/dL (13.5-17.5); LYMPHOCYTES # (AUTO) 0.6 K/uL (0.8-4.8); LYMPHOCYTES % (AUTO) 11.3 % (20.0-44.0); MEAN CORPUSCULAR HEMOGLOBIN 32 PG (26.0-33.0); MEAN CORPUSCULAR HGB CONC 34 g/dl (31.0-36.0); MEAN CORPUSCULAR VOLUME 92 fL (80-96); MONOCYTES # (AUTO) 0.7 K/uL (0.1-1.30); MONOCYTES % (AUTO) 12.5 % (2.0-12.0); NEUTROPHILS % (AUTO) 71.4 % (43.0-81.0); PLATELET COUNT (AUTO) 141 K/uL (150-450); RED BLOOD CELL COUNT(AUTO) 3.25 MIL/uL (4.5-6.0); RED CELL DISTRIBUTION WIDTH 17.9 % (11.5-15.0); WHITE BLOOD COUNT (AUTO) 5.6 K/uL (4.3-11.0)
[2024-07-29 11:45] LABS: CALCIUM, SERUM 9.5 mg/dL (8.5-10.1); MAGNESIUM 2.2 mg/dL (1.8-2.4); PHOSPHORUS 6.2 mg/dL (2.5-4.9); POTASSIUM 4.1 mmol/L (3.5-5.1)
[2024-07-29 12:12] LABS: CREATININE 7.7 mg/dL (0.6-1.3)
[2024-07-29 15:11] LABS: *FACTOR II, DNA ANALYSIS Negative (.)
[2024-07-29 16:00] VITALS: BP 140/88; TEMP 97.9; O2SAT 98
[2024-07-29 20:00] VITALS: BP 120/87; TEMP 98.2; O2SAT 97
[2024-07-30 07:12] LABS: BASOPHILS # (AUTO) 0.1 K/uL (0.0-0.2); BASOPHILS % (AUTO) 0.9 % (0.0-2.0); EOSINOPHILS # (AUTO) 0.2 K/uL (0.0-0.7); EOSINOPHILS % (AUTO) 2.9 % (0.0-6.0); HEMATOCRIT 31 % (39-51); HEMOGLOBIN 10.5 g/dL (13.5-17.5); LYMPHOCYTES # (AUTO) 0.9 K/uL (0.8-4.8); LYMPHOCYTES % (AUTO) 12.4 % (20.0-44.0); MEAN CORPUSCULAR HEMOGLOBIN 31 PG (26.0-33.0); MEAN CORPUSCULAR HGB CONC 34 g/dl (31.0-36.0); MEAN CORPUSCULAR VOLUME 92 fL (80-96); MONOCYTES # (AUTO) 0.8 K/uL (0.1-1.30); MONOCYTES % (AUTO) 11.8 % (2.0-12.0); PLATELET COUNT (AUTO) 158 K/uL (150-450); RED BLOOD CELL COUNT(AUTO) 3.34 MIL/uL (4.5-6.0); RED CELL DISTRIBUTION WIDTH 17.8 % (11.5-15.0)
[2024-07-30 08:00] VITALS: BP 151/106; TEMP 98.1; O2SAT 99
[2024-07-30 10:00] LABS: MAGNESIUM 2.3 mg/dL (1.8-2.4); PHOSPHORUS 7.4 mg/dL (2.5-4.9); POTASSIUM 4.7 mmol/L (3.5-5.1)
[2024-07-30 10:03] LABS: CREATININE 9.8 mg/dL (0.6-1.3)
[2024-07-30 12:04] VITALS: BP 133/87
[2024-07-30] MEDS: ASPIRIN 81 MG TAB.CHEW PO SCH (12:20)
[2024-07-30 16:00] VITALS: BP 135/91; TEMP 98.2; O2SAT 96
[2024-07-30 20:00] VITALS: BP 127/87; TEMP 98.5; O2SAT 98
[2024-07-31 07:25] LABS: BASOPHILS % (AUTO) 0.6 % (0.0-2.0); EOSINOPHILS # (AUTO) 0.3 K/uL (0.0-0.7); EOSINOPHILS % (AUTO) 5.2 % (0.0-6.0); HEMATOCRIT 31 % (39-51); HEMOGLOBIN 10.5 g/dL (13.5-17.5); LYMPHOCYTES # (AUTO) 0.8 K/uL (0.8-4.8); LYMPHOCYTES % (AUTO) 13.5 % (20.0-44.0); MEAN CORPUSCULAR HEMOGLOBIN 31 PG (26.0-33.0); MEAN CORPUSCULAR HGB CONC 34 g/dl (31.0-36.0); MEAN CORPUSCULAR VOLUME 92 fL (80-96); MONOCYTES # (AUTO) 0.8 K/uL (0.1-1.30); NEUTROPHILS # (AUTO) 4.1 K/uL (1.8-8.9); NEUTROPHILS % (AUTO) 67.7 % (43.0-81.0); PLATELET COUNT (AUTO) 162 K/uL (150-450); RED BLOOD CELL COUNT(AUTO) 3.37 MIL/uL (4.5-6.0); RED CELL DISTRIBUTION WIDTH 17.4 % (11.5-15.0)
[2024-07-31 07:39] LABS: INR 1.13 (0.91-1.10); PARTIAL THROMBOPLASTIN TIME 31.2 SEC (24.3-34.3); PROTHROMBIN TIME 11.9 SECS (9.2-11.1)
[2024-07-31 07:54] LABS: CALCIUM, SERUM 9.5 mg/dL (8.5-10.1); CREATININE 7.2 mg/dL (0.6-1.3); MAGNESIUM 2.3 mg/dL (1.8-2.4); POTASSIUM 4.5 mmol/L (3.5-5.1)
[2024-07-31 08:00] VITALS: BP 133/101; TEMP 97.7; O2SAT 100
[2024-07-31 08:05] LABS: D-DIMER 13.25 mg/L(FEU (0.17-0.50)
[2024-07-31 17:17] VITALS: BP 131/75
[2024-08-01 14:09] LABS: *SPE A/G RATIO 1.2 (0.7-1.7); *SPE ALBUMIN 3.1 g/dL (2.9-4.4); *SPE ALPHA-1-GLOBULIN 0.3 g/dL (0.0-0.4); *SPE ALPHA-2-GLOBULIN 0.6 g/dL (0.4-1.0); *SPE BETA GLOBULIN 0.8 g/dL (0.7-1.3); *SPE GLOBULIN, TOTAL 2.5 g/dL (2.2-3.9); *SPE M-SPIKE Not Observed g/dL (Not Observed); *SPE PROTEIN TOTAL 5.6 g/dL (6.0-8.5); *SPEGAMMA GLOBULIN 0.8 g/dL (0.4-1.8)
== END 2024-07-31 17:45 | DRG 149 ==
LOC: ER 21:13 → TELE 07-20 02:20 → MED 07-21 13:10
PROVIDERS: ADMIT Nurse Practitioner Acute Care; ATTEND Nurse Practitioner Family
PROC: 5A1D70Z Performance of Urinary Filtration, Intermittent, Less than 6 Hours Per Day (ICD-10-PCS; principal; 2024-07-22)
DX: H81.12 Benign paroxysmal vertigo, left ear (principal); I26.99 Other pulmonary embolism without acute cor pulmonale; N18.6 End stage renal disease; J96.01 Acute respiratory failure with hypoxia; I21.A1 Myocardial infarction type 2; J15.9 Unspecified bacterial pneumonia; G93.40 Encephalopathy, unspecified; Q61.3 Polycystic kidney, unspecified; I12.0 Hypertensive chronic kidney disease with stage 5 chronic kidney disease or end stage renal disease; D68.59 Other primary thrombophilia; D61.818 Other pancytopenia; K86.2 Cyst of pancreas; J90 Pleural effusion, not elsewhere classified; Z99.2 Dependence on renal dialysis; Z79.01 Long term (current) use of anticoagulants; Z86.711 Personal history of pulmonary embolism; Z95.5 Presence of coronary angioplasty implant and graft; Z20.822 Contact with and (suspected) exposure to COVID-19; N40.0 Benign prostatic hyperplasia without lower urinary tract symptoms; I25.2 Old myocardial infarction; I25.10 Atherosclerotic heart disease of native coronary artery without angina pectoris; E03.9 Hypothyroidism, unspecified; E78.5 Hyperlipidemia, unspecified; D69.6 Thrombocytopenia, unspecified; E83.9 Disorder of mineral metabolism, unspecified; R11.2 Nausea with vomiting, unspecified; E87.5 Hyperkalemia; D63.8 Anemia in other chronic diseases classified elsewhere; K76.89 Other specified diseases of liver; F29 Unspecified psychosis not due to a substance or known physiological condition
CPT/HCPCS: 36415; 70450-TC; 70496-TC; 70551-TC; 71045-TC; 74181-TC; 80048-TC; 80076-TC; 81240; 81241; 82140-TC; 82150-TC; 82232; 82378; 82607-TC; 82728-TC; 82784; 82962-TC; 83090; 83540-TC; 83690-TC; 83735-TC; 83880; 84100-TC; 84155; 84165; 84443-TC; 84484-TC; 85025-TC; 85300; 85301; 85303; 85396; 85610-TC; 85613; 85670; 85705; 85730-TC; 85732; 86225; 86235; 86301; 86334; 86431-TC; 86704; 86706; 86803; 87081-TC; 87340; 90935-TC; 93307-TC; 93880-TC; 93970-TC; 97110-TC; 97112-TC; 97116-TC; 97530-TC; A4223; G0378; J0692; J1200; J1644; J2405; J2470; J2765; J3420; J7030; J7050; J7060; J8597; Q9967

== ENCOUNTER 2024-08-20 17:44 | Emergency (ER) | payer MEDICARE, OTHER ==
[~2024-08-20] VITALS: Ht 167.6 cm; Wt 73.9 kg
[~2024-08-20 17:44] MED LIST changes: -APIX2.5T PO; +APIX5TAB PO; +CEFD300C3 PO; -DOXA4TAB19 PO; -FINA5TAB11 PO; +MECL-159 PO; -METO50TA16 PO
[2024-08-20 21:13] VITALS: BP 142/85; TEMP 98.4; O2SAT 96
== END 2024-08-20 21:14 ==
LOC: ER 17:45
DX: I12.0 Hypertensive chronic kidney disease with stage 5 chronic kidney disease or end stage renal disease (principal); N18.6 End stage renal disease; Z79.01 Long term (current) use of anticoagulants; Z79.899 Other long term (current) drug therapy; Z99.2 Dependence on renal dialysis